=== PATIENT | male | born 1990 | race Caucasian/White ===

== ENCOUNTER 2017-07-21 21:50 | Emergency (ER) | payer OTHER ==
[2017-07-21 22:07] VITALS: BP 136/84; PULSE 97; TEMP 98.7; BMI 46.6
--- NOTE | 2017-07-21 22:37 | PDOC ---
History of Present Illness - General Chief Complaint: Injury Stated Complaint: INJURY TO LEFT SHOULDER Time Seen by Provider: 07/21/17 22:29 - History of Present Illness Initial Comments: 07/22/17 01:37 26-year-old male with no significant past medical history presents emergency Department with left shoulder pain after injury. Patient reports 3 hours prior to arrival to the emergency department, he was playing football when he attempted to tackle another player and landed onto his left shoulder. Denies any head strike or other injuries. Reports inability to range his shoulder but significant pain when doing so at the top of his shoulder. Denies any weakness or numbness in the shoulder. Has been in his usual state of good health, denies any fevers, chills, chest pain, shortness of breath, abdominal pain, nausea/ vomiting/diarrhea, headaches. Past History - Past Medical History Allergies/Adverse Reactions: Allergies Allergy/AdvReac Type Severity Reaction Status Date / Time No Known Allergies Allergy Verified 07/21/17 21:52 Home Medications: Ambulatory Orders Ibuprofen [Motrin -] 600 mg PO ONCE PRN #7 tablet 07/21/17 COPD: No Other medical history: DENIES - Suicide/Smoking/Psychosocial Hx Smoking History: Never smoked Have you smoked in the past 12 months: No Information on smoking cessation initiated: No Hx Alcohol Use: No Drug/Substance Use Hx: No Substance Use Type: None Review of Systems - Review of Systems Comments:: 07/22/17 01:38 GENERAL/CONSTITUTIONAL: No fever or chills. No weakness. HEAD, EYES, EARS, NOSE AND THROAT: No change in vision. No ear pain or discharge. No sore throat. GASTROINTESTINAL: No nausea, vomiting, diarrhea or constipation. GENITOURINARY: No dysuria, frequency, or change in urination. CARDIOVASCULAR: No chest pain or shortness of breath. RESPIRATORY: No cough, wheezing, or hemoptysis. MUSCULOSKELETAL: +L shoulder pain. No neck or back pain. SKIN: No rash NEUROLOGIC: No headache, vertigo, loss of consciousness, or change in strength/ sensation. ENDOCRINE: No increased thirst. No abnormal weight change. HEMATOLOGIC/LYMPHATIC: No anemia, easy bleeding, or history of blood clots. ALLERGIC/IMMUNOLOGIC: No hives or skin allergy. *Physical Exam - Vital Signs Last Vital Signs Temp Pulse Resp BP Pulse Ox 98.7 F 97 H 18 136/84 100 07/21/17 21:53 07/21/17 21:53 07/21/17 21:53 07/21/17 21:53 07/21/17 21:53 - Physical Exam Comments: 07/22/17 01:39 GENERAL: Awake, alert, and fully oriented, in no acute distress HEAD: No signs of trauma EYES: PERRLA, EOMI, sclera anicteric, conjunctiva clear ENT: Auricles normal inspection, hearing grossly normal, nares patent, oropharynx clear without exudates. Moist mucosa NECK: Normal ROM, supple, no lymphadenopathy, JVD, or masses LUNGS: Breath sounds equal, clear to auscultation bilaterally. No wheezes, and no crackles HEART: Regular rate and rhythm, normal S1 and S2, no murmurs, rubs or gallops ABDOMEN: Soft, nontender, normoactive bowel sounds. No guarding, no rebound. No masses EXTREMITIES: L shoulder with FROM, able to touch the opposite shoulder. TTP at distal acromion, but no deformities or tenting along clavicle. Normal sensation over LUE, 2+ peripheral pulse. 5/5 strength LUE Otherwise: Normal range of motion, no edema. No clubbing or cyanosis. No cords , erythema, or tenderness BACK: no midline cervical, thoracic, lumbar ttp NEUROLOGICAL: Normal speech, cranial nerves intact, negative pronator drift, 5/ 5 strength in all 4 extremities, normal sensation to light touch in all 4 extremities, normal cerebellar exam, normal gait, normal reflexes and tone SKIN: Warm, Dry, normal turgor, no rashes or lesions noted. ED Treatment Course - RADIOLOGY Radiology Studies Ordered: Category Date Time Status SHOULDER-LEFT [RAD] Stat Radiology 07/21/17 21:57 Taken Medical Decision Making - Medical Decision Making 07/22/17 01:46 26-year-old male presents with left shoulder pain after falling on his left shoulder while playing football. Vitals unremarkable. Exam with tenderness to palpation over the acromion but otherwise full range of motion and neurovascularly intact. X-ray with no evidence of bony pathology or dislocation. Patient given Motrin with good pain response. Likely shoulder sprain. Will discharge with ortho referral. I discussed the physical exam findings, ancillary test results and final diagnoses with the patient. I answered all of the patient's questions. The patient was satisfied with the care received and felt comfortable with the discharge plan and treatment plan. The patient will call their primary care physician within 24 hours to arrange follow-up and will return to the Emergency Department with any new, persistent or worsening symptoms. *DC/Admit/Observation/Transfer Diagnosis at time of Disposition: Shoulder injury - Discharge Dispostion Disposition: HOME Condition at time of disposition: Stable Admit: No - Prescriptions Prescriptions: Ibuprofen [Motrin -] 600 mg PO ONCE PRN #7 tablet PRN Reason: Pain - Referrals Referrals: Eb Alanis MD [Staff Physician] - - Patient Instructions Printed Discharge Instructions: Shoulder Sprain Additional Instructions: Call Dr. Alanis's office for a follow up appointment with an orthopedic doctor within 1 week. Take motrin every 6 hours as needed for pain. Apply ice 3-4 times /day. Return to the emergency department if you have any new, worsening, or concerning symptoms. - Post Discharge Activity - Attestations Physician Attestion: 07/21/17 23:34 I, Dr. Marysol Florez MD, attest that this document has been prepared under my direction and personally reviewed by me in its entirety. I further attest, that it accurately reflects all work, treatment, procedures and medical decision -making performed by me.
[2017-07-21] MEDS ORDERED: IBUPROFEN 600 MG TABLET (FP) PO ONE (23:34)
== END 2017-07-21 23:40 | disposition home or self-care (01) ==
LOC: FER 21:50
DX: S49.92XA Unspecified injury of left shoulder and upper arm, initial encounter (principal); X58.XXXA Exposure to other specified factors, initial encounter; Y93.61 Activity, american tackle football; Y92.321 Football field as the place of occurrence of the external cause
CPT/HCPCS: 73030-TC-LT-FY; 99281-25

== ENCOUNTER 2018-06-22 07:25 | Emergency (ER) | payer OTHER ==
[2018-06-22 07:33] VITALS: BP 132/87; PULSE 93; TEMP 99.5; BMI 50.2
--- NOTE | 2018-06-22 07:42 | PDOC ---
History of Present Illness - General Chief Complaint: Cold Symptoms Stated Complaint: SORE THROAT, VOMITING Time Seen by Provider: 06/22/18 07:42 - History of Present Illness Initial Comments: 06/22/18 09:27 Chief complaint: Sore throat History of present illness: Sore throat for 2 days, accompanied by malaise, fatigue, muscle aches, nausea, and one episode of vomiting this morning. Review of systems: Denies fever/chills, headache, abdominal pain, diarrhea, earache, or cough. Family member diagnosed with strep. Past medical history: Moderate to severe obesity but no current medical or surgical illnesses known takes no medications Social history: No tobacco alcohol or nonprescription drugs. Stable home and family Family history: Reviewed and noncontributory including early coronary artery disease, metabolic disease including diabetes, or cancer Physical exam: Alert and oriented, obese but in no acute distress, cheerful and cooperative Afebrile, vital signs normal HEENT: Mild pharyngeal injection without exudate swelling or mass. Ears clear. Nose clear Neck supple without bruit mass or nodes Lungs clear with full breath sounds bilaterally. No wheezes rales or rhonchi CV regular without murmur rub or gallop pulses full and symmetric no JVD or edema no bruits Abdomen nondistended, bowel sounds normal, soft without mass tenderness organomegaly Skin exam reveals pinpoint macular rash on the face, sparing the rest of the body. No intercurrent erythema induration or tenderness Neurological intact Extremities no CCE. No rash Impression: Viral pharyngitis, possible flu, rule out strep Plan: Strep screen is positive. Antibiotics prescribed. Motrin. Rest and follow- up primary physician. Fully ambulatory and in no significant distress at discharge to follow-up as directed Past History - Past Medical History Allergies/Adverse Reactions: Allergies Allergy/AdvReac Type Severity Reaction Status Date / Time No Known Allergies Allergy Verified 06/22/18 07:26 Home Medications: Ambulatory Orders Ibuprofen 600 mg PO TID #20 tablet 06/22/18 Penicillin V Potassium [Pen Vee K -] 500 mg PO BID #20 tablet 06/22/18 COPD: No - Suicide/Smoking/Psychosocial Hx Smoking History: Never smoked Have you smoked in the past 12 months: No Information on smoking cessation initiated: No Hx Alcohol Use: No Drug/Substance Use Hx: No Substance Use Type: None *Physical Exam - Vital Signs Last Vital Signs Temp Pulse Resp BP Pulse Ox 99.5 F 93 H 20 132/87 97 06/22/18 07:26 06/22/18 07:26 06/22/18 07:26 06/22/18 07:26 06/22/18 07:26 Moderate Sedation - Procedure Monitoring Vital Signs: Procedure Monitoring Vital Signs Temperature 99.5 F 06/22/18 07:26 Pulse Rate 93 H 06/22/18 07:26 Respiratory Rate 20 06/22/18 07:26 Blood Pressure 132/87 06/22/18 07:26 O2 Sat by Pulse Oximetry (%) 97 06/22/18 07:26 *DC/Admit/Observation/Transfer Diagnosis at time of Disposition: Streptococcal pharyngitis - Discharge Dispostion Disposition: HOME Condition at time of disposition: Stable Decision to Admit order: No - Prescriptions Prescriptions: Ibuprofen 600 mg PO TID #20 tablet Penicillin V Potassium [Pen Vee K -] 500 mg PO BID #20 tablet - Referrals - Patient Instructions Printed Discharge Instructions: DI for Strep Throat - Post Discharge Activity Forms/Work/School Notes: Back to Work
== END 2018-06-22 08:57 | disposition home or self-care (01) ==
LOC: FER 07:25
DX: J02.0 Streptococcal pharyngitis (principal)
CPT/HCPCS: 87880; 99283-25

== ENCOUNTER 2019-03-26 13:25 | Emergency (ER) | payer SELFPAY ==
[2019-03-26 13:56] VITALS: BMI 48.7
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
[2019-03-26 16:23] LABS: BASO % 1.2 % (0-2.0); EOS % 0.5 % (0-4.5); HEMOGLOBIN 15.1 GM/dL (11.7-16.9); MCH 29.5 pg (25.7-33.7); MCHC 34.3 g/dl (32.0-35.9); MEAN CELL VOLUME 86.1 fl (80-96); MEAN PLT VOLUME 8.6 fl (7.5-11.1); NEUT % 68.3 % (42.8-82.8); PLATELET COUNT 277 K/MM3 (134-434); RBC 5.11 M/mm3 (4.00-5.60); RDW 13.3 % (11.9-15.9); WHITE BLOOD COUNT 11.5 K/mm3 (4.0-10.0)
[2019-03-26 16:55] LABS: ALBUMIN 4.1 g/dl (3.4-5.0); ALK PHOS 100 U/L (45-117); BLOOD UREA NITROGEN 7.3 mg/dL (7-18); CALCIUM 9.3 mg/dL (8.5-10.1); CHLORIDE 105 mmol/L (98-107); CO2 29 mmol/L (21-32); CREATININE 0.7 mg/dL (0.55-1.3); GLUCOSE,RANDOM 86 mg/dL (74-106); SGPT/ALT 94 U/L (13-61); SODIUM 140 mmol/L (136-145); TOT PROT 7.8 g/dl (6.4-8.2)
[2019-03-26 16:56] LABS: ANION GAP 6 MMOL/L (8-16); SGOT/AST 52 U/L (15-37)
[2019-03-26 17:17] LABS: EPI CELLS 0.9 /HPF (0-5/HPF); HYALINE CASTS 4 /lpf (0-8); PH,URINE 6.5 (5.0-8.0); URINE APPEARANCE CLEAR; URINE BACTERIA 7.9 /hpf (NEGATIVE); URINE BILIRUBIN 1+ (NEGATIVE); URINE COLOR DK YELLOW; URINE GLUCOSE (UA) NEGATIVE (NEGATIVE); URINE KETONE TRACE (NEGATIVE); URINE LEUK ESTERASE NEGATIVE (NEGATIVE); URINE NITRITE NEGATIVE (NEGATIVE); URINE PROTEIN 2+ (NEGATIVE); URINE RBC 1 /hpf (0-4); URINE WBC 1 /hpf (0-5)
[2019-03-26 20:19] VITALS: BP 126/68; PULSE 68; TEMP 98.5
--- NOTE | 2019-03-26 22:40 | PDOC ---
Documentation entered by Clint Bonilla SCRIBE, acting as scribe for Marysol Florez MD. Marysol Florez MD: This documentation has been prepared by the Chad drake Daniel, SCRIBE, under my direction and personally reviewed by me in its entirety. I confirm that the documentation accurately reflects all work, treatment, procedures, and medical decision making performed by me. Attending Attestation - Resident Resident Name: KulwinderRichard - ED Attending Attestation I have performed the following: I have examined & evaluated the patient, The case was reviewed & discussed with the resident, I agree w/resident's findings & plan, Exceptions are as noted - HPI HPI: 03/26/19 15:46 The patient is a 28 year old male with no past medical history here today for evaluation of lower back and epigastric pain. The patient reports that he has had 2 days of lower back pain and epigastric pain that is worse after eating. Reports pain across entire lower back and in a band from his epigastric area outward b/l. He reports that he lifts weights but denies any heavy lifting out of the ordinary. He also reports that he couldnt sleep last night due to the pain. No treatments tried. Patient denies headache, lightheadedness, focal weakness or numbness. Denies fever, chills. Denies chest pain, shortness of breath. Denies nausea, vomiting, diarrhea. Allergies: NKA PCP: Ludin Alfaro - Physicial Exam PE: 03/26/19 15:46 GENERAL: Awake, alert, and fully oriented, in no acute distress EYES: PERRLA, EOMI, sclera anicteric, conjunctiva clear ENT: Auricles normal inspection, hearing grossly normal, nares patent, oropharynx clear without exudates. Moist mucosa NECK: Normal ROM, supple, no lymphadenopathy, JVD, or masses LUNGS: Breath sounds equal, clear to auscultation bilaterally. No wheezes, and no crackles HEART: Regular rate and rhythm, normal S1 and S2, no murmurs, rubs or gallops ABDOMEN: Soft, nontender, normoactive bowel sounds. No guarding, no rebound. No masses. Negative murphys sign. No CVAT EXTREMITIES: Normal range of motion, no edema. No clubbing or cyanosis. No cords , erythema, or tenderness. WWP. BACK: No midline spinal tenderness in cervical/thoracic/lumbar region. + Paraspinal lumbar ttp b/l NEUROLOGICAL: Normal speech, cranial nerves intact, equal strength and sensation b/l SKIN: Warm, Dry, normal turgor, no rashes or lesions noted. - Medical Decision Making 03/26/19 18:37 28yo M presents to the ED with bandlike epigastric and lumbar pain that began at the same time. DDx includings MSK pain vs cholelithiasis vs pancreatitis vs gastritis vs enteritis vs colitis Labs with mild LFT bump, US consistent with fatty liver. No acute findings in w/u, possibly MSK? Serial abd exams benign, tolerating PO Pt is feeling better (declined pain meds prior) and is eager for DC home Pt referred to GI and will f.u with PMD I discussed the physical exam findings, ancillary test results and final diagnoses with the patient. I answered all of the patient's questions. The patient was satisfied with the care received and felt comfortable with the discharge plan and treatment plan. The patient will call their primary care physician within 24 hours to arrange follow-up and will return to the Emergency Department with any new, persistent or worsening symptoms.
== END 2019-03-26 19:35 | disposition home or self-care (01) ==
LOC: JER 13:25
DX: R10.13 Epigastric pain (principal); M54.5 Low back pain; R56.9 Unspecified convulsions
CPT/HCPCS: 36415; 76705-TC; 80053; 81003; 83690; 84484; 85025; 87086; 99283-25